=== PATIENT | male | born 1985 | race Two or more races ===

== ENCOUNTER 2020-01-17 14:06 | Emergency (ER) | payer SELFPAY ==
[~2020-01-17] VITALS: Ht 175.3 cm; Wt 100.0 kg
[2020-01-17 14:46] VITALS: BP 147/91
[2020-01-17] MEDS ORDERED: ONDANSETRON 2MG/ML, 2ML IVPush ONE (15:00)
[2020-01-17] MEDS ORDERED: SODIUM CHLORIDE FLUSH 10ML SYR IVF ONE (15:00)
[2020-01-17 15:24] LABS: ALBUMIN 3.9 g/dL (3.4-5.0); ANION GAP 9 mmol/L (5-15); BASOPHILS % (AUTO) 1 % (0-1); CALCIUM 8.5 mg/dL (8.5-10.1); CHLORIDE 107 mmol/L (98-107); EOSINOPHILS % (AUTO) 2 % (1-7); LYMPHOCYTES % (AUTO) 31 % (22-44); MEAN CORPUSCULAR HEMOGLOBIN 31.9 pg (27.5-34.5); MEAN PLATELET VOLUME 8.5 fL (7.4-10.4); MONOCYTES % (AUTO) 11 % (2-9); NEUTROPHILS % (AUTO) 54 % (42-75); PLATELET COUNT 104 x10^3/uL (130-400); RED BLOOD COUNT 4.74 x10^6/uL (4.38-5.82); RED CELL DISTRIBUTION WIDTH 16.1 % (9.4-14.8)
[2020-01-17 15:27] LABS: ALANINE AMINOTRANSFERASE 92 U/L (12-78); ALKALINE PHOSPHATASE 74 U/L (45-117); CREATININE 0.85 mg/dL (0.7-1.3); TOTAL PROTEIN 10.2 g/dL (6.4-8.2)
[2020-01-17 15:43] LABS: MD NO
== END 2020-01-17 17:40 | disposition left against medical advice (07) ==
LOC: ED 17:15
DX: R11.2 Nausea with vomiting, unspecified (principal); R19.7 Diarrhea, unspecified; I45.10 Unspecified right bundle-branch block; M79.10 Myalgia, unspecified site; R06.02 Shortness of breath
CPT/HCPCS: 36415; 71045; 80053; 83690; 85025; 93005; 99285

== ENCOUNTER 2020-01-18 08:35 | Emergency (ER) | payer SELFPAY ==
[~2020-01-18] VITALS: Ht 172.7 cm; Wt 93.0 kg
[2020-01-18 09:46] LABS: BASOPHILS % (AUTO) 1 % (0-1); EOSINOPHILS % (AUTO) 4 % (1-7); LYMPHOCYTES % (AUTO) 30 % (22-44); MEAN CORPUSCULAR HEMOGLOBIN 32.1 pg (27.5-34.5); MEAN CORPUSCULAR HGB CONC 34.2 g/dL (33.2-36.2); MEAN PLATELET VOLUME 8.7 fL (7.4-10.4); MONOCYTES % (AUTO) 14 % (2-9); NEUTROPHILS % (AUTO) 51 % (42-75); PLATELET COUNT 95 x10^3/uL (130-400); RED CELL DISTRIBUTION WIDTH 15.4 % (9.4-14.8)
--- NOTE | 2020-01-18 09:49 | NUR ---
PT SITTING ON GURNEY, NOT IN RESP DISTRESS AT THIS TIME
[2020-01-18 09:53] LABS: ALBUMIN 3.6 g/dL (3.4-5.0); ANION GAP 10 mmol/L (5-15); CALCIUM 8.2 mg/dL (8.5-10.1); CHLORIDE 109 mmol/L (98-107); MD NO
[2020-01-18 09:57] LABS: ALANINE AMINOTRANSFERASE 79 U/L (12-78); ALKALINE PHOSPHATASE 72 U/L (45-117); BILIRUBIN,TOTAL 1.5 mg/dL (0.2-1.0); CREATININE 0.82 mg/dL (0.7-1.3); TOTAL PROTEIN 9.4 g/dL (6.4-8.2)
--- NOTE | 2020-01-18 11:00 | NUR ---
ENCOURAGED PT TO DRINK WATER AND PROVIDE A URINE SAMPLE. PT STATES HE CANNOT VOID AT THIS TIME.
[2020-01-18 12:30] LABS: MICROSCOPIC INDICATED
[2020-01-18 12:34] VITALS: BP 128/89
--- NOTE | 2020-01-18 13:23 | NUR ---
Patient/Caregiver given discharge instructions and they have confirmed that they understand the instructions. Patient ambulatory with steady gait.
== END 2020-01-18 13:25 | disposition home or self-care (01) ==
LOC: ED 09:23
DX: K29.20 Alcoholic gastritis without bleeding (principal); Z20.828 Contact with and (suspected) exposure to other viral communicable diseases; F10.10 Alcohol abuse, uncomplicated; R10.13 Epigastric pain; R11.2 Nausea with vomiting, unspecified; R19.7 Diarrhea, unspecified; M54.5 Low back pain; Y90.9 Presence of alcohol in blood, level not specified
CPT/HCPCS: 71045; 80053; 81001; 83690; 85025; 87635; 99284

== ENCOUNTER 2020-04-16 21:46 | Observation (INO) | payer SELFPAY ==
[~2020-04-16] VITALS: Ht 172.7 cm; Wt 96.2 kg
[2020-04-16] MEDS ORDERED: SODIUM CHLORIDE 0.9% 1,000ML IVBOLUS ONE (22:30)
[2020-04-16] MEDS ORDERED: SODIUM CHLORIDE FLUSH 10ML SYR IVF ONE (22:30)
--- NOTE | 2020-04-16 22:39 | NUR ---
PT HERE FOR CHEST/ RIB PAIN WITH SOB SINCE JANUARY WHEN HE WAS SEEN HERE. HE WAS COVID- AT THAT TIME. PT SAW ANOTHER MD IN FEBRUARY AND WAS COVID + AT THAT TIME. VSS. PT PLACED ON DIRECTOR TECHNICAL AND PULSE OX. PIV PLACED AND LABS DRAWN AND SENT TO LAB. FLUIDS RUNNING. PT ALSO ADMITS TO ETOH USE THIS EVENING. PT APPEARS ANXIOUS. VSS. CALL LIGHT IN REACH
[2020-04-16 22:43] LABS: MEAN CORPUSCULAR HEMOGLOBIN 31.9 pg (27.5-34.5); MEAN CORPUSCULAR HGB CONC 34.6 g/dL (33.2-36.2); MEAN PLATELET VOLUME 8.5 fL (7.4-10.4); PLATELET COUNT 105 x10^3/uL (130-400); RED BLOOD COUNT 4.25 x10^6/uL (4.38-5.82); RED CELL DISTRIBUTION WIDTH 16.3 % (9.4-14.8)
[2020-04-16 22:53] LABS: ALBUMIN 3.2 g/dL (3.4-5.0); ANION GAP 9 mmol/L (5-15); CALCIUM 7.7 mg/dL (8.5-10.1); CHLORIDE 112 mmol/L (98-107); CREATININE 0.77 mg/dL (0.7-1.3)
[2020-04-16 22:56] LABS: TROPONIN I 0.088 ng/mL (0.000-0.045)
[2020-04-16 23:19] LABS: MD YES
[2020-04-16] MEDS ORDERED: ASPIRIN 81 MG TABLET CHEW PO ONE (23:30)
[2020-04-16 23:32] LABS: ANISOCYTOSIS 1+; BANDS%(MANUAL) 5 % (0-7); BASOS#(MANUAL) 0.14 x10^3/uL (0-0.1); BASOS% (MANUAL) 1 % (0-1); EOS% (MANUAL) 5 % (1-7); LYMPH#(MANUAL) 3.64 x10^3/uL (1-3.4); LYMPHS% (MANUAL) 26 % (22-44); MONOS#(MANUAL) 0.98 x10^3/uL (0.3-2.7); MONOS% (MANUAL) 7 % (2-9); MYELOCYTES# (MANUAL) 0.14 x10^3/uL (0-0); MYELOCYTES% (MANUAL) 1 % (0-0); REACTIVE LYMPHS # (MANUAL) 0.14 x10^3/uL (0-0); REACTIVE LYMPHS % (MANUAL) 1 % (0-0); SEG#(MANUAL) 7.56 x10^3/uL (1.8-6.8); SEGS% (MANUAL) 54 % (42-75)
[2020-04-16 23:33] LABS: <PLATELET ESTIMATE> DECREASED; <PLT MORPHOLOGY> NORMAL PLT MORPH
[2020-04-16] MEDS ORDERED: ASPIRIN 81 MG TABLET CHEW ONE (23:41)
[2020-04-16] MEDS ORDERED: OMNIPAQUE 350 MG/ML, 75ML BOTTLE ONE (23:42)
[2020-04-17] MEDS ORDERED: THIAMINE 100MG TABLET ONE (00:02)
--- NOTE | 2020-04-17 00:06 | NUR ---
PT TO BE ADMITTED. PT GIVEN ASA AND B-1. VSS. PT ANXIOUS ABOUT ADMIT. PT WAITING FOR BED ASSIGNMENT. CALL LIGHT IN REACH
--- NOTE | 2020-04-17 00:40 | NUR ---
Report from ASHVIN Mendoza. Assumed care. Pt ambulating to bathroom, steady equal gait. Kelly reports she attempted to call report x1.
[2020-04-17 01:13] VITALS: BP 118/76
[2020-04-17] MEDS ORDERED: FOLIC ACID 5 MG/ML IM ONE (03:00)
[2020-04-17] MEDS ORDERED: LORazepam 0.5MG TABLET PO PRN (03:00)
[2020-04-17] MEDS ORDERED: THIAMINE 200 MG in DEXTROSE 5% 50 ML IVPB ONE (03:00)
[2020-04-17] MEDS ORDERED: ONDANSETRON 2MG/ML, 2ML IVPush PRN (03:00)
[2020-04-17] MEDS ORDERED: ACETAMINOPHEN 325 MG TABLET PO PRN (03:00)
[2020-04-17] MEDS ORDERED: NITROGLYCERIN 0.4 MG BOTTLE (25 TABS) SL PRN (03:00)
[2020-04-17] MEDS ORDERED: LABETALOL 5MG/ML, 20ML IVPush PRN (03:00)
[2020-04-17] MEDS ORDERED: DIAZEPAM 5 MG/ML, 2ML IV ONE (03:00)
[2020-04-17] MEDS ORDERED: HYDROcodone/APAP 5/325 TABLET PO PRN (03:00)
[2020-04-17] MEDS ORDERED: LORazepam 1MG TABLET PO PRN ×4 (03:00)
[2020-04-17] MEDS ORDERED: DIAZEPAM 10 MG TABLET PO PRN (03:30)
[2020-04-17] MEDS ORDERED: FOLIC ACID 1 MG TABLET PO ONE (03:30)
[2020-04-17] MEDS ORDERED: THIAMINE 100MG TABLET PO ONE ×2 (03:30)
[2020-04-17 03:34] LABS: TROPONIN I 0.089 ng/mL (0.000-0.045)
[2020-04-17] MEDS: DIAZEPAM 10 MG TABLET PO SCH ×4 (03:48→21:39)
[2020-04-17 04:35] LABS: ALBUMIN 2.8 g/dL (3.4-5.0); BILIRUBIN, DIRECT 0.4 mg/dL (0.1-0.2)
[2020-04-17 04:38] LABS: BILIRUBIN,INDIRECT 0.7 mg/dL (0.0-2.0); BILIRUBIN,TOTAL 1.1 mg/dL (0.2-1.0); TOTAL PROTEIN 7.3 g/dL (6.4-8.2)
[2020-04-17] MEDS: ASPIRIN 325 MG TABLET EC PO SCH (05:37)
[2020-04-17 07:05] VITALS: BP 117/77
[2020-04-17] MEDS: FAMOTIDINE 20 MG TABLET PO SCH ×2 (09:07→21:39)
[2020-04-17] MEDS: MULTIVITAMINS/MINERALS TABLET PO SCH (09:08)
[2020-04-17] MEDS: THIAMINE 100MG TABLET PO SCH (09:08)
[2020-04-17 09:22] LABS: TROPONIN I 0.105 ng/mL (0.000-0.045)
[2020-04-17 12:15] LABS: AMPHETAMINE SCREEN, URINE Negative (Negative); BARBITURATE SCREEN, URINE Negative (Negative); BENZODIAZEPINE SCREEN, URINE Negative (Negative); CANNABINOID SCREEN, URINE Negative (Negative); COCAINE SCREEN, URINE Negative (Negative); METHADONE SCREEN, URINE Negative (Negative); OPIATE SCREEN, URINE Negative (Negative)
[2020-04-17 12:45] VITALS: BP 124/75
[2020-04-17] MEDS ORDERED: DIAZEPAM 5 MG TABLET ONE ×2 (14:54)
[2020-04-17] MEDS ORDERED: KETOROLAC 30 MG/1 ML IVPush PRN (20:30)
[2020-04-17 21:33] VITALS: BP 115/78
[2020-04-18 01:20] VITALS: BP 133/89
[2020-04-18] MEDS: DIAZEPAM 5 MG TABLET PO SCH ×3 (03:00→09:09)
[2020-04-18 04:55] LABS: BASOPHILS % (AUTO) 1 % (0-1); EOSINOPHILS % (AUTO) 5 % (1-7); LYMPHOCYTES % (AUTO) 31 % (22-44); MEAN CORPUSCULAR HEMOGLOBIN 31.9 pg (27.5-34.5); MEAN CORPUSCULAR HGB CONC 34.6 g/dL (33.2-36.2); MEAN PLATELET VOLUME 8.8 fL (7.4-10.4); MONOCYTES % (AUTO) 11 % (2-9); NEUTROPHILS % (AUTO) 53 % (42-75); PLATELET COUNT 76 x10^3/uL (130-400); RED BLOOD COUNT 4.31 x10^6/uL (4.38-5.82); RED CELL DISTRIBUTION WIDTH 15.9 % (9.4-14.8)
[2020-04-18 04:58] LABS: MD NO
[2020-04-18 05:08] LABS: CHLORIDE 109 mmol/L (98-107)
[2020-04-18 05:23] LABS: ALANINE AMINOTRANSFERASE 46 U/L (12-78); ALBUMIN 2.9 g/dL (3.4-5.0); ALKALINE PHOSPHATASE 66 U/L (45-117); ANION GAP 7 mmol/L (5-15); BILIRUBIN,TOTAL 2.3 mg/dL (0.2-1.0); CALCIUM 8.3 mg/dL (8.5-10.1); CREATININE 0.69 mg/dL (0.7-1.3); TOTAL PROTEIN 7.9 g/dL (6.4-8.2); TROPONIN I 0.096 ng/mL (0.000-0.045)
[2020-04-18] MEDS: ASPIRIN 325 MG TABLET EC PO SCH (06:02)
[2020-04-18 07:03] VITALS: BP 116/78
[2020-04-18] MEDS ORDERED: THIAMINE 100 MG in DEXTROSE 5% 50 ML IVPB SCH (09:00)
[2020-04-18] MEDS: FAMOTIDINE 20 MG TABLET PO SCH (09:09)
[2020-04-18] MEDS: THIAMINE 100MG TABLET PO SCH (09:09)
[2020-04-18] MEDS: MULTIVITAMINS/MINERALS TABLET PO SCH (09:09)
[2020-04-18] MEDS ORDERED: FOLI1TAB32 PO (09:50)
[2020-04-18] MEDS ORDERED: MULT-658 PO (09:50)
[2020-04-18] MEDS ORDERED: FAMO20TA7 PO (09:50)
[2020-04-18] MEDS ORDERED: THIA100T67 PO (09:50)
== END 2020-04-18 10:36 | disposition home or self-care (01) ==
LOC: ED 23:55 → EDIP 04-17 00:40 → INTOOBSV 04-17 00:40 → 5SO 04-17 00:56 → DCLOUNGE 04-18 10:25
PROVIDERS: ADMIT Internal Medicine; ATTEND Internal Medicine
DX: R07.89 Other chest pain (principal); R06.00 Dyspnea, unspecified; D72.829 Elevated white blood cell count, unspecified; D69.6 Thrombocytopenia, unspecified; R10.9 Unspecified abdominal pain; I21.4 Non-ST elevation (NSTEMI) myocardial infarction; I27.20 Pulmonary hypertension, unspecified; F10.229 Alcohol dependence with intoxication, unspecified; F41.9 Anxiety disorder, unspecified; Z86.16 Personal history of COVID-19; Z79.899 Other long term (current) drug therapy; Y90.8 Blood alcohol level of 240 mg/100 ml or more
CPT/HCPCS: 36415; 71045; 71275; 76700; 80048; 80053; 80076; 80307; 80320; 82040; 83735; 84100; 84484; 85025; 85379; 93005; 93306; 96374; 97161; 97165; 99285; G0378; J1885; J7030; Q9967; G0480